=== PATIENT | male | born 1960 | race Caucasian/White ===

== ENCOUNTER 2017-12-19 23:07 | Inpatient (IN) | payer SELFPAY ==
[2017-12-19 23:08] VITALS: BP 157/95; PULSE 97; RESP 16; TEMP 36.8; O2SAT 89; BMI 41.8
[2017-12-19 23:20] VITALS: PULSE 99; RESP 17; O2SAT 93
--- NOTE | 2017-12-19 23:42 | ED.DCSUM_ITS ---
- ER Visit Summary Date of Service: 12/19/17 Chief Complaint: Left lower extremity chronic wound with fever and chills History of Present Illness: The patient is a 57 M bilateral lower extremity chronic lymphedema. 1-2 years ago he developed a wound in his left lower leg which he became septic from from cellulitis and local infection. Was treated in the hospital that time with IV antibiotics and got better. He was also under the care of the wound care center at that time. He never needed any surgery done. States since September of this year he has had a wound develop his left lower extremity again. He takes care of his lower extremities at home with Alexander wraps. Currently he is uninsured so he does not see a doctor very frequently. And was hesitant to seek medical care until tonight. States the last several days he has had fever and chills. And just felt poorly. And he is concerned his left lower extremity became infected again. Physical Examination: Middle-aged male no acute distress. Vital signs are stable afebrile. H EENT exam unremarkable. Neck nontender no lymphadenopathy. Lungs clear to auscultation bilaterally. Heart regular rate and rhythm no murmur. Abdomen soft nontender. Normal bowel sounds no peritoneal signs. He is moving all 4 extremities. The neurovascular intact. He has chronic lymphedema both lower extremities. His left lower extremity on the anterior lower waters just proximal to the ankle is a large wound. There is no pus. It is warm to touch. There is surrounding cellulitis. There is no lymphangitic streaking. No involvement of the ankle or knee joints. There is no inguinal lymphadenopathy on the left leg. Dorsi plantar flexion is intact. His normal touch sensation. He does have a DP pulse. Neurologically is awake and alert with no focal motor deficits. Test Results: White count is 7. H&H 14 and 41 no bands. Electrolytes unremarkable creatinine 1.31. Chest x-ray showed chronic changes no acute process. Emergency Department Course and Treatment: Patient with chronic bilateral lower extremity lymphedema with a chronic wound of his left lower leg since September. He is seen to have developed a cellulitis on left lower leg wound. Treatment Plan: Admission for IV antibiotics and set up for wound care. P exam at 01 100 patient is doing well. He and his and I discussed his test results and the plan for admission and further evaluation and workup. I will speak to Dr. Nalini the hospitalist on this evening. Disposition: Admission Impression: Chronic left lower extremity leg wound with acute cellulitis Chronic bilateral lower extremity lymphedema This note was generated with [employer] dictation software. It may contain incorrect words, spelling, and punctuation that were not noted in review of the chart prior to signing ED Disposition - Plan for ED Patient: Chief Complaint: Cellulitis Referrals: Roger Mendez MD [Primary Care Provider] -
--- NOTE | 2017-12-20 00:20 | RAD_ITS ---
STUDY: X-RAY CHEST REASON FOR EXAM: Male, 57 years old. Hypoxia TECHNIQUE: 2 views COMPARISON: None. FINDINGS: Notch is normal. There are platelike atelectatic changes in the left base. Right lung is clear. No pleural effusions. Normal visualized thoracic spine. Normal visualized ribs, clavicles, and shoulders. There is no demonstrated abnormality of the visualized soft tissue structures of the upper abdomen. RAD/Chest PA and Lateral IMPRESSION: Platelike atelectatic changes in the left base. No acute pneumonia. No failure. Electronically Signed: Jaxon Alarcon, at 1:26 EDT Tel , Service support ,
[2017-12-20 00:22] LABS: Anion Gap 8 (5-15); BUN 17 mg/dL (7-18); Calcium,Total 8.9 mg/dL (8.5-10.1); Chloride 105 mmol/L (98-107); Creatinine, Serum 1.31 mg/dL (0.70-1.30); EST Glomerular Filtration Rate 60 mL/min (>60); Est Glom Filt Rate - Afr Amer 72 mL/min (>60); Estimated Creatinine Clearance 80.43 ml/min; Glucose 117 mg/dL (74-106); Potassium 4.4 mmol/L (3.5-5.1); Sodium Level 135 mmol/L (136-145)
[2017-12-20 00:28] LABS: Absolute Lymphocyte Count 1.69 X10^3/ul (0.83-4.51); Absolute Neutrophil Count 5.2 X10^3/uL (2.0-7.7); Basophil# 0.06 X10^3/uL; Basophil% 0.8 % (0-1); Eosinophil# 0.18 X10^3/uL; Eosinophils% 2.3 % (0-5); Hematocrit 41.6 % (40-54); Hemoglobin 14.9 g/dl (13.0-16.5); Lymphocyte # 1.69 X10^3/ul (4.0); Lymphocyte % 21.7 % (19-41); Mean Corp Hgb Conc 35.8 g/gl (32-36); Mean Corpuscular Hgb 37.1 pg (27.0-32.0); Mean Corpuscular Volume 103.5 fL (80-94); Mean Platelet Vol. 9.2 fl (6.2-12.0); Monocyte# 0.69 X10^3/uL; Monocyte% 8.9 % (0-10); Neutrophil # 5.15 X10^3/uL (2.7-7.7); POSITIVE COUNT NO; POSITIVE DIFFERENTIAL NO; POSITIVE MORPHOLOGY NO; Platelet Count 315 K/mm3 (150-450); RBC Distribution Width CV 11.6 % (11.6-14.6); RBC Distribution Width SD 43.9 fl (35.1-43.9); Red Blood Count 4.02 M/mm3 (4.6-6.2); White Blood Count 7.8 K/mm3 (4.4-11.0)
--- NOTE | 2017-12-20 01:29 | PCM.HP.STD ---
Problem List (1) Cellulitis Status: Acute (2) Cellulitis of left leg Status: Acute (3) Wound, open, lower limb with complication Status: Acute (4) Lymphedema Status: Chronic (5) Obesity Status: Chronic Qualifiers: Obesity type: due to excess calories (6) Venous (peripheral) insufficiency Status: Chronic History of Present Illness Date of Admission: 12/20/17 Chief Complaint: Cellulitis The patient is a 57 year old male w/ h/o lymphedema, PVD, and chronic left leg wound admitted for cellulitis. Pt has been struggling with the left leg wound x 1-2 years and was admitted a year or two ago for severe sepsis secondary to cellulitis. He was given IV antibiotic and has been set up with his wound care. Since September, he noted the wound gotten worse. He has been working and has been standing all day which did not help with wound healing per pt. He noted drainage and worsening pain and redness. No matter what he does, he could not improve the drainage. Nothing made it worse. He did not see medical attention because he is uninsured. He developed fever and chill in the last 2-3 days. No other associated symptoms. Past Medical History Past Medical History (Chronic Problems): Chronic Problems Venous (peripheral) insufficiency (Chronic) Obesity (Chronic) Hypertension (Chronic) Lymphedema (Chronic) Allergies No Known Allergies Allergy (Verified 12/19/17 23:12) Home Medications: Ambulatory Orders Medication Instructions Recorded NK [NK] 12/19/17 Surgical History: no surgical history Psychiatric History: No pertinent psych hx Lives: Spouse/ Significant Other Smoking Status: Never smoker Alcohol: None Drugs: None - *Family History Maternal History Items: No pertinent history Paternal History Items: Heart Disease, Hypertension Review of Systems Constitutional: Reports: Chills, Fever. Denies: Weight Change HEENT: Denies: Head Aches, Sinus Congestion, Sinus Drainage Cardiovascular: Denies: Chest Pain, Palpitations Respiratory: Denies: Cough, Shortness of breath at rest, Sputum production Gastrointestinal: Denies: Abdominal Pain, Nausea, Vomiting Genitourinary: Denies: Dysuria Musculoskeletal: Denies: Joint Pain, Joint Tenderness Skin: Reports: Wounds. Denies: Rash Neurological: Denies: Numbness, Tingling, Focal weakness Psychiatric: Denies: Anxiety, Depression, Homicidal Ideations, Suicidal Ideations Hematologic/ Lymphatic: Denies: Easy Bruising, Easy Bleeding VTE Information - Inpt Only VTE Present on Admission: No VTE Mechan Device Prophylaxis: None VTE Pharm Prophylaxis ordered?: Yes Patient Problems: Active and Suspected Problems Cellulitis (Acute) - Physical Exam General: Alert, Oriented x3, Cooperative HEENT: Atraumatic, PERRLA, EOMI, Normocephalic Neck: Supple, No JVD, Negative Carotid Bruits Lungs: Clear to auscultation, Normal air movement Cardiovascular: Regular rate, No murmurs Abdomen: Bowel Sounds Present, Soft, Non Tender Extremities: Capillary Refill Less than 3 Seconds, - - Bilateral lymphedema. Left leg cellulitis Skin: No rashes, No breakdown Musculoskeletal: No Tenderness to Palpation of Joints or Extremities Neurological: Cranial nerves II-XII grossly intact Psych/Mental Status: Normal Affect, Appropriate Vital Signs Temp Pulse Resp BP Pulse Ox 98.2 F 99 17 157/95 H 93 12/19/17 23:08 12/19/17 23:20 12/19/17 23:20 12/19/17 23:08 12/19/17 23:20 Oxygen Flow Rate (L/min) 2 Oxygen Delivery Method Nasal Cannula Weight: 164 kg Body Mass Index (BMI) 41.8 Laboratory Tests Past 24 Hrs 12/19/17 12/19/17 23:00 23:55 WBC 7.8 RBC 4.02 L Hgb 14.9 Hct 41.6 MCV 103.5 H MCH 37.1 H MCHC 35.8 RDW 11.6 RDW Differential 43.9 Plt Count 315 MPV 9.2 Immature Gran % (Auto) 0.300 Neut % (Auto) 66.0 Lymph % (Auto) 21.7 Pettis % (Auto) 8.9 Eos % (Auto) 2.3 Baso % (Auto) 0.8 Absolute Neuts (auto) 5.2 Absolute Lymphs (auto) 1.69 Total Counted Not Reportable Sodium 135 L Potassium 4.4 Chloride 105 Carbon Dioxide 22.0 Anion Gap 8 BUN 17 Creatinine 1.31 H Estim Creat Clear Calc 80.43 Est GFR (MDRD) Af Amer 72 Est GFR (MDRD) Non-Af 60 BUN/Creatinine Ratio 13.0 Glucose 117 H Calcium 8.9 Assessment/Plan All Active Problems Cellulitis (Acute) Wound, open, lower limb with complication (Acute) Cellulitis of left leg (Acute) 57 year old male w/ h/o lymphedema, PVD, and chronic left leg wound admitted for cellulitis. 1) Cellulitis: Will start zosyn and vancomycin. Lymphedema noted. Will get cultures. 2) PVD: Supportive care. Monitor. 3) CKD III: Hydration. Routine CKD care. 4) Prophylaxis: Heparin.
[2017-12-20 01:47] VITALS: BP 138/87; PULSE 95; RESP 17; TEMP 36.7; O2SAT 97
[2017-12-20 02:13] VITALS: BMI 41.3; BMI 41.4
[2017-12-20 02:23] VITALS: BP 142/90; PULSE 85; RESP 16; TEMP 37; O2SAT 92
--- NOTE | 2017-12-20 02:27 | VDLE_ITS ---
Reason For Study: BLE SWELLING, CELLULITIS RIGHT LEFT GSV is normal. GSV is normal. CFV is compressible, spontaneous, phasic, CFV is compressible, spontaneous, phasic, competent and demonstrates normal competent, and demonstrates normal augmentation. augmentation. FV is compressible, spontaneous, phasic, FV is compressible, spontaneous, phasic, competent and demonstrates normal competent and demonstrates normal augmentation. augmentation. POP V is compressible, spontaneous, phasic, POP V is compressible, spontaneous, phasic, competent and demonstrates normal competent and demonstrates normal augmentation. augmentation. T/P Trunk is compressible. T/P Trunk is compressible. PTV is compressible. PTV is compressible. Unable to assess Per V. Unable to assess Per V. Procedure Exam performed portable in patient room. The exam was diagnostic. The study was technically difficult. A preliminary report was called and/or faxed to [facility]. Interpretation Summary Deep veins of the lower extremities are bilaterally patent and compressible segmentally. There is no evidence of deep vein thrombosis on either side. Valvular competence appears intact within the proximal deep venous systems bilaterally. The greater saphenous veins appear bilaterally patent and compressible segmentally. The peroneal veins were not visualized on either side. Ordering Physician: Janes Gayle Referring Physician: Roger Mendez Performed By: Francine Hernandez, RDCS, RVT
[2017-12-20 03:13] LABS: Erythrocyte Sedimentation Rate 65 mm/hr (0-20)
[2017-12-20] MEDS: 0.9% Normal Saline 1,000 ML 100 ML IV ×2 (03:29→22:57)
--- NOTE | 2017-12-20 04:44 | PCM.RX.CS ---
Consult Pharmacy has been consulted to manage selected antiobiotic: Vancomycin Type of Consult: New start Suspected Infection: Skin/Soft tissue Prior Doses of Antibiotics Received/Current Regimen: Medications Vancomycin HCl 1,250 mg/ (Sodium Chloride) 275 mls @ 183.333 mls/hr IV Q12H RYANNE Vancomycin HCl 2,000 mg/ (Sodium Chloride) 540 mls @ 260 mls/hr IV X1 ONE Stop: 12/20/17 05:04 Last Admin: 12/20/17 03:29 Dose: 260 mls/hr Labs: Sodium 135 mmol/L (136-145) L 12/19/17 23:00 Potassium 4.4 mmol/L (3.5-5.1) 12/19/17 23:00 Chloride 105 mmol/L (98-107) 12/19/17 23:00 Carbon Dioxide 22.0 mmol/L (21.0-32.0) 12/19/17 23:00 Anion Gap 8 (5-15) 12/19/17 23:00 BUN 17 mg/dL (7-18) 12/19/17 23:00 Creatinine 1.31 mg/dL (0.70-1.30) H 12/19/17 23:00 Est GFR (MDRD) Af Amer 72 mL/min (>60) 12/19/17 23:00 Est GFR (MDRD) Non-Af 60 mL/min (>60) 12/19/17 23:00 BUN/Creatinine Ratio 13.0 RATIO (10-20) 12/19/17 23:00 Glucose 117 mg/dL (74-106) H 12/19/17 23:00 Weight used for dosin.4 kg Estimated Creatinine Clearance: 80 Goal Trough: 10-15 mcg/mL Pharmacy Plan for Drug Dosing: Pharmacy Service will continue to monitor and adjust dosing as required. Follow-Up Labs: Trough Vancomycin Labs to be done on [date and time ordered]: 12/21/17 @1430
[2017-12-20 05:31] LABS: Hemoglobin A1c 5.7 % (4.2-6.3)
[2017-12-20] MEDS: Piperacil/Tazobactam 3.375 GM/50 ML ML IV ×3 (06:59→22:58)
[2017-12-20] MEDS: Heparin Injection (Vial) 5,000 UNIT/ML VIAL 5000 UNIT SC ×3 (07:03→22:57)
[2017-12-20 07:11] LABS: Bedside Glucose 113 mg/dL (70-110)
[2017-12-20 08:26] VITALS: BP 152/85; PULSE 72; RESP 17; TEMP 36.4; O2SAT 95
--- NOTE | 2017-12-20 10:33 | CASEMGMT ---
See assessment. SW spoke w/pt in room, as pt is self pay. Pt is not certain if he will qualify for Medicaid but is willing to fill out an application. Pt works in [employer] at [employer], is fully independent and no homegoing needs are anticipated. SW did give pt information for [employer], 211, [facility] assist, and other prescription assist programs. Pt pays privately to see PCP when needed. No needs are anticipated at discharge unless pt needs assist w/meds. SANDIP did also let Mariel in our financial dept know that pt is willing to fill out Medicaid application, Mariel had been up earlier but pt was sleeping. She will come back to see pt and complete the erica w/pt. ADAN Calhoun, CRM FUNCTIONAL ANALYST
[2017-12-20] MEDS: Glucerna Shake 120 ML LIQUID PO ×2 (11:20→13:54)
[2017-12-20] MEDS: oxyCODONE 5 MG Tablet PO (11:22)
[2017-12-20 11:30] LABS: Bedside Glucose 132 mg/dL (70-110)
--- NOTE | 2017-12-20 12:42 | PCA ---
Obtained blood sugar for nurse. pt tolerated well.
[2017-12-20 14:30] VITALS: BP 146/93; PULSE 84; RESP 18; TEMP 36.8; O2SAT 92
--- NOTE | 2017-12-20 20:17 | PCM.PROGNOTE ---
Patient Problems: Active and Suspected Problems Cellulitis (Acute) Subjective: Patient is a 57-year-old male admitted to [facility] on 12/20/2017 with a diagnosis of cellulitis of the left lower extremity and nonhealing wound of the left lower extremity. He does have a history of venous insufficiency and venous stasis ulcers in the past. He has in the past also followed up with the wound care clinic. 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 He has been unable to follow-up at the wound care clinic. He has his legs dependent every day driving a mower and they have been swelling severely. There has been a lot of drainage from the wound on the left leg. He has been afebrile since admission. White blood cell count is normal at 7.8 with an unremarkable differential. Hemoglobin is 14.9 and the MCV is elevated at 103.5. Sodium is 135 and the creatinine is 1.31. The ESR is elevated at 65. Hemoglobin A1c is 5.7. - Physical Exam General: Alert, Oriented x3, Cooperative, No apparent distress HEENT: Atraumatic, PERRLA, EOMI, Normocephalic Lungs: Clear to auscultation, Normal air movement Cardiovascular: Regular rate, Regular Rhythm, Normal S1, Normal S2, No murmurs, No Gallop Abdomen: Bowel Sounds Present, Soft, Non Tender, Non-Distended, Obese Extremities: No clubbing, No cyanosis, Edema, Peripheral Pulses Normal Skin: - - there is a venous stasis ulcer present over the distal LLE. the base is 95% granulating. The margins are pearly pink in appearance and some of the edges are rolled under. there is mild janna-wound erythema. There is serous drainage soaking the wound. there is no odor to the DC. He has a hard area in the posterior left calf which is not tender to palpation. Neurological: Cranial nerves II-XII grossly intact, Neuro grossly intact Psych/Mental Status: Normal Affect, Appropriate Vital Signs Temp Pulse Resp BP Pulse Ox 98.3 F 84 18 146/93 H 92 12/20/17 14:30 12/20/17 14:30 12/20/17 14:30 12/20/17 14:30 12/20/17 14:30 Oxygen Flow Rate (L/min) 2 Oxygen Delivery Method Room Air Weight: 357 lb 15.997 oz Body Mass Index (BMI) 41.3 Intake and Output for Last 24 Hours 12/18/17 12/19/17 12/20/17 23:59 23:59 23:59 Intake Total 2036 Balance 2036 POC Glucose 12/20/17 12/20/17 11:20 06:57 POC Glucose 132 H 113 H Medical Necessity - Tobacco Use Smoking Status: Never smoker Assessment/Plan All Active Problems Cellulitis (Acute) Wound, open, lower limb with complication (Acute) Cellulitis of left leg (Acute) Impressions 1. cellulitis of the Left LE with a non-healing venous stasis ulcer. 2. morbid obesity 3. Superficial varicosities of both lower extremities 4. elevated BP in a pt with no hx of HTN PCR on the drainage from the left lower extremity to rule out MRSA or staph aureus Wound culture Continue Zosyn and vancomycin for now until we get the PCR back. Heparin 5000 units subcu every 8 hours for DVT prophylaxis Recheck lab in the a.m.
[2017-12-20 22:24] VITALS: BP 143/90; PULSE 77; RESP 20; TEMP 36.6; O2SAT 94
[2017-12-21 00:53] LABS: M R Staph aureus DNA By PCR Negative (Negative); Probe Check PASS; Specimen Processing Control PASS; Staph aureus DNA By PCR NEGATIVE (Negative)
[2017-12-21] MEDS: 0.9% NaCl Peripheral Flush Adult/Peds IV (03:04)
[2017-12-21 03:13] VITALS: BP 131/87; PULSE 75; RESP 20; TEMP 36.4; O2SAT 92
[2017-12-21] MEDS: Heparin Injection (Vial) 5,000 UNIT/ML VIAL 5000 UNIT SC ×3 (06:28→21:50)
[2017-12-21] MEDS: Piperacil/Tazobactam 3.375 GM/50 ML ML IV ×3 (06:28→21:51)
--- NOTE | 2017-12-21 06:36 | NURSING ---
Discussed with patient order for dressing changes to bilateral leg to be changed every 8 hours. Patient refused to have them changed at this time-states he wants to wait for doctor or wound RN to come in and change them.
[2017-12-21 06:56] VITALS: O2SAT 94
--- NOTE | 2017-12-21 09:39 | CASEMGMT ---
Social Work Note SW placed a call to Mariel in patient financial services. Mariel confirms that pt completed Medicaid Application and Mariel faxed the application to [facility]. Mariel states that pt will need to follow up with [employer] to submit proof of income. Tri Holliday CERTIFIED REGISTERED DENTAL ASSISTANT, SAS ANALYST
[2017-12-21 09:50] VITALS: BP 139/74; PULSE 72; RESP 18; TEMP 36.8; O2SAT 98
[2017-12-21] MEDS: oxyCODONE 5 MG Tablet PO ×2 (11:45→21:51)
[2017-12-21] MEDS: 0.9% Normal Saline 1,000 ML 100 ML IV ×2 (12:42→19:50)
[2017-12-21 15:27] LABS: Vancomycin, Trough Level 11.3 ug/mL (5.0-15.0)
[2017-12-21 15:30] VITALS: BP 142/82; PULSE 72; RESP 18; TEMP 37; O2SAT 98
--- NOTE | 2017-12-21 15:44 | NURSING ---
wound photo: right lateral lower leg
--- NOTE | 2017-12-21 15:45 | NURSING ---
wound photo: left anterior lower leg
--- NOTE | 2017-12-21 15:59 | PCM.RX.CS ---
Consult Pharmacy has been consulted to manage selected antiobiotic: Vancomycin Type of Consult: Follow-up Suspected Infection: Skin/Soft tissue Prior Doses of Antibiotics Received/Current Regimen: Vancomycin 1250mg IV q12h x3 doses Labs: Sodium 135 mmol/L (136-145) L 12/19/17 23:00 Potassium 4.4 mmol/L (3.5-5.1) 12/19/17 23:00 Chloride 105 mmol/L (98-107) 12/19/17 23:00 Carbon Dioxide 22.0 mmol/L (21.0-32.0) 12/19/17 23:00 Anion Gap 8 (5-15) 12/19/17 23:00 BUN 17 mg/dL (7-18) 12/19/17 23:00 Creatinine 1.31 mg/dL (0.70-1.30) H 12/19/17 23:00 Est GFR (MDRD) Af Amer 72 mL/min (>60) 12/19/17 23:00 Est GFR (MDRD) Non-Af 60 mL/min (>60) 12/19/17 23:00 BUN/Creatinine Ratio 13.0 RATIO (10-20) 12/19/17 23:00 Glucose 117 mg/dL (74-106) H 12/19/17 23:00 Vancomycin Trough 11.3 ug/mL (5.0-15.0) 12/21/17 14:45 Microbiology: Microbiology 12/20/17 22:40 Skin - Leg Gram Stain - Final Weight used for dosin kg Estimated Creatinine Clearance: 80ml/min Goal Trough: 10-15 mcg/mL Pharmacy Plan for Drug Dosing: Trough came back at 11.3. Recommend keeping same dose of 1250mg IV q12h and rechecking trough after 3 more doses. Pharmacy Service will continue to monitor and adjust dosing as required. Follow-Up Labs: Trough Vancomycin - trough Labs to be done on [date and time ordered]: 12/23/17 at 1430
[2017-12-21 19:31] VITALS: BP 133/83; PULSE 69; RESP 18; TEMP 36.6; O2SAT 94
--- NOTE | 2017-12-21 19:56 | PCM.PROGNOTE ---
Subjective: Afebrile since admission. Vital signs are stable. He has no complaints today and has been compliant with elevation.Denies any diarrhea or mouth pain - Physical Exam General: Alert, Oriented x3, Cooperative Oral: No Gingival or Mucosal Lesions/ Ulcerations Lungs: Clear to auscultation Cardiovascular: Regular rate, Regular Rhythm, Normal S1, Normal S2, No Gallop Abdomen: Bowel Sounds Present, Soft, Non Tender, Non-Distended Extremities: Edema - Continues to have edema of the lower extremities but much improved since admission, - - 100% granulation tissue in the wound base, yellow serous drainage, no odor, sweeling has improved. Skin: - - The base of the wound is now 100% granulating with islands of epithelialization evident. No periwound erythema, no odor, no purulent discharge. Continues to have serous drainage. Vital Signs Temp Pulse Resp BP Pulse Ox 97.9 F 69 18 133/83 H 94 12/21/17 19:31 12/21/17 19:31 12/21/17 19:31 12/21/17 19:31 12/21/17 19:31 Oxygen Flow Rate (L/min) 2 Oxygen Delivery Method Room Air Weight: 357 lb 15.997 oz Body Mass Index (BMI) 41.3 Intake and Output for Last 24 Hours 12/19/17 12/20/17 12/21/17 23:59 23:59 23:59 Intake Total 2036 3724.5 / 3724.5 Balance 2036 3724.5 / 3724.5 Microbiology Past 72 Hours 12/20/17 22:40 Gram Stain - Final Skin - Leg Laboratory Tests Past 24 Hrs 12/20/17 12/21/17 22:40 14:45 Vancomycin Trough 11.3 S.aureus Protein A PCR NEGATIVE MRSA (PCR) Negative Medical Necessity - Tobacco Use Smoking Status: Never smoker Assessment/Plan All Active Problems Cellulitis (Acute) Wound, open, lower limb with complication (Acute) Cellulitis of left leg (Acute) Impressions 1. cellulitis of the Left LE with a non-healing venous stasis ulcer. 2. morbid obesity 3. Superficial varicosities of both lower extremities 4. elevated BP in a pt with no hx of HTN Continue current care We will discuss with discharge planning whether this patient will be able to follow-up in the wound care center since he has now completed the Medicaid application Stressed the importance of elevation and compression to avoid venous stasis ulcerations in the future. Code Visit Inpatient E&M: 20272 Subs Hosp L1
[2017-12-22 01:31] VITALS: BP 137/84; PULSE 66; RESP 20; TEMP 37.1; O2SAT 95
[2017-12-22] MEDS: 0.9% Normal Saline 1,000 ML 100 ML IV (06:04)
[2017-12-22] MEDS: Piperacil/Tazobactam 3.375 GM/50 ML ML IV (06:04)
[2017-12-22 09:14] VITALS: BP 138/94; PULSE 64; RESP 16; TEMP 36.7; O2SAT 95
[2017-12-22] MEDS: Acetaminophen 325 MG Tablet 650 MG PO (09:20)
[2017-12-22] MEDS: oxyCODONE 5 MG Tablet PO (09:21)
--- NOTE | 2017-12-22 10:58 | CASEMGMT ---
Social Work Note Dr. Hernandez states that pt will need wound care center appointment for next week. SW updated psychiatric secretary Anabelle of this. Anabelle states understanding and will set up appointment. Plan: Pt is expected to discharge home today Tri Holliday MSW, CLAIMS ADJUDICATOR
--- NOTE | 2017-12-22 13:24 | PCM.DC ---
- Discharge Diagnoses Current Active Problems: Current Active and Chronic Problems Cellulitis (Acute) You will use the following diet at home:: No restrictions Your food should be the consistency of: Regular Your liquids should be the consistency of: Regular/Thin Discharge Activity: May not drive while taking narcotic pain medications. Weight Bearing Status: Weight bearing as tolerated Keep extremity elevated above heart level: Legs Call your doctor if your incision/area has: Sudden Increased Bleeding, Increased Pain/ Swelling, Increased Redness, Foul Smelling Discharge Call your doctor if you observe: Fever of 101 or Higher Cleanse incision/area with: Normal Saline Instructions: Chronic Venous Insufficiency: Treating Ulcers, Understanding Chronic Venous Insufficiency Additional Instructions: 1. Your BP is mildly increased in the hospital. There are many BP meds that are only $10 for 3 months available at [facility]. Ask Dr. Mendez if he thinks you need to be on an antihypertensive. 2. Losing weight will help with the swelling in your legs and also help bring down the BP. Keep trying......it is not an easy task. The paleo diet is mostly vegetables and lean meats and this may be a good option for you. 3. you are going to be able to be followed in the wound care center since the medicaid application was made so I want them to see you next week. 4. IT IS VERY IMPORTANT to keep your legs elevated and to use the compression wraps to control the swellling in your legs....that wound will NOT heal if the swelling is not controlled. 5. You are going to be less active than usual and with the leg elevation and no work this puts you at risk for blood clots. We are giving you a prescription for Xarelto at a low dose to prevent blood clots and you do not need to take it longer than 1 month. You are going to be able to work in the future IF you get some good compressions socks and are compliant with wearing them everyday from the time you swing your legs out of bed in the morning until you lie down at night......you will need 30-40 cm of pressure to be effective and Dr. Mendez or the wound care center can give you a prescription when the ulcer is healed. For now continue the [place] wraps. If you are unable to get the Xarelto then take 1 325mg Aspirin twice a day for the next month. Allergies/Adverse Reactions: Allergies No Known Allergies Allergy (Verified 12/19/17 23:12) Medications to take at Discharge Cefadroxil [Duricef] 500 mg PO BID #9 cap 12/22/17 Oxycodone HCl/Acetaminophen [Percocet 5/325] 1 - 2 tab PO Q4H PRN PRN 7 Days #30 tab 12/22/17 The following prescriptions were given: Oxycodone HCl/Acetaminophen [Percocet 5/325] 1 - 2 tab PO Q4H PRN PRN 7 Days #30 tab PRN Reason: Pain Cefadroxil [Duricef] 500 mg PO BID #9 cap Primary Care Physician: Roger Mendez MD [Primary Care Provider] - Please follow up with your Primary Care Physician in: 1-2 weeks Please Follow Up With: Wound Center When: early next week Proposed Discharge Date: 12/22/17
--- NOTE | 2017-12-22 13:35 | DCINST_ITS ---
- Discharge Diagnoses Current Active Problems: Current Active and Chronic Problems Cellulitis (Acute) You will use the following diet at home:: No restrictions Your food should be the consistency of: Regular Your liquids should be the consistency of: Regular/Thin Discharge Activity: May not drive while taking narcotic pain medications. Weight Bearing Status: Weight bearing as tolerated Keep extremity elevated above heart level: Legs Call your doctor if your incision/area has: Sudden Increased Bleeding, Increased Pain/ Swelling, Increased Redness, Foul Smelling Discharge Call your doctor if you observe: Fever of 101 or Higher Cleanse incision/area with: Normal Saline Instructions: Chronic Venous Insufficiency: Treating Ulcers, Understanding Chronic Venous Insufficiency Additional Instructions: 1. Your BP is mildly increased in the hospital. There are many BP meds that are only $10 for 3 months available at [facility]. Ask Dr. Mendez if he thinks you need to be on an antihypertensive. 2. Losing weight will help with the swelling in your legs and also help bring down the BP. Keep trying......it is not an easy task. The paleo diet is mostly vegetables and lean meats and this may be a good option for you. 3. you are going to be able to be followed in the wound care center since the medicaid application was made so I want them to see you next week. 4. IT IS VERY IMPORTANT to keep your legs elevated and to use the compression wraps to control the swellling in your legs....that wound will NOT heal if the swelling is not controlled. 5. You are going to be less active than usual and with the leg elevation and no work this puts you at risk for blood clots. We are giving you a prescription for Xarelto at a low dose to prevent blood clots and you do not need to take it longer than 1 month. You are going to be able to work in the future IF you get some good compressions socks and are compliant with wearing them everyday from the time you swing your legs out of bed in the morning until you lie down at night......you will need 30-40 cm of pressure to be effective and Dr. Mendez or the wound care center can give you a prescription when the ulcer is healed. For now continue the Surpres wraps. If you are unable to get the Xarelto then take 1 325mg Aspirin twice a day for the next month. Allergies/Adverse Reactions: Allergies No Known Allergies Allergy (Verified 12/19/17 23:12) Medications to take at Discharge Cefadroxil [Duricef] 500 mg PO BID #9 cap 12/22/17 Oxycodone HCl/Acetaminophen [Percocet 5/325] 1 - 2 tab PO Q4H PRN PRN 7 Days # 30 tab 12/22/17 The following prescriptions were given: Oxycodone HCl/Acetaminophen [Percocet 5/325] 1 - 2 tab PO Q4H PRN PRN 7 Days # 30 tab PRN Reason: Pain Cefadroxil [Duricef] 500 mg PO BID #9 cap Primary Care Physician: Roger Mendez MD [Primary Care Provider] - Please follow up with your Primary Care Physician in: 1-2 weeks Please Follow Up With: Wound Center When: early next week Proposed Discharge Date: 12/22/17
--- NOTE | 2017-12-22 13:35 | CASEMGMT ---
Social Work Note Dr. Hernandez is discharging pt on Xarelto and Eliquis. SW provided pt with Xarelto and Eliquis free 30 day trial offer pamphlets. Pt thanked this SW. Pt denied additional needs or concerns at this time. 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
--- NOTE | 2017-12-22 13:45 | DS.PCM_ITS ---
Discharge Date and Diagnosis Date of Admission: 12/20/17 Date of Discharge: 12/22/17 - Primary Discharge Diagnosis Active and Suspected Problems Cellulitis (Acute)- left lower extremity non-healing venous stasis ulcer of the LLE - Secondary Discharge Diagnosis Chronic Problems Venous (peripheral) insufficiency (Chronic) MorbidObesity (Chronic) Hypertension (Chronic) - not on any meds currently Hospital Course and Treatment Imaging Results: Clinical Impression(s) from Imaging Studies Chest X-Ray 12/20/17 00:20 IMPRESSION: Platelike atelectatic changes in the left base. No acute pneumonia. No failure. Electronically Signed: Jaxon Alarcon, at 1:26 EDT Tel , Service support , Microbiology 12/19/17 23:55 Blood Culture (Wb) - Right Hand Blood Culture - Final No growth in 5 days. 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 He had been unable to follow-up at the wound care clinic. His legs are dependent every day while driving a mower and they have been swelling severely. There had been a lot of drainage from the wound on the left leg. White blood cell count at admission was 7.8 with 66% neutrophils. BMP was unremarkable. The sed rate was elevated at 65. Blood pressures were elevated initially but came down prior to discharge. He was started on vancomycin and Zosyn by the admitting physician and PCR of the wound drainage was ordered as well as a wound culture. PCR was negative for staph aureus and MRSA and vancomycin was discontinued. He remained on Zosyn. He was seen in consultation by the enterostomy/wound nurse daily. The wound culture was positive for Serratia marcescens sensitive to Zosyn. The swelling decreased significantly with elevation and compression. On 2017 the wound was 100% granulating with no odor, no periwound erythema and no purulent discharge. There were islands of new epithelialization present in the wound. SurePress wraps were applied and the patient's was instructed in proper application. He was discharged home on 12/22/2017 with a prescription for cefadroxil 500 mg twice daily. I did not find significant evidence for cellulitis present and feel he primarily has venous stasis/venous insufficiency which has been non-healing due to severe swelling. He was given a prescription for Xarelto 10 mg, #30, and will take this as long as he is primarily sedentary and elevating his leg to promote wound healing. He was given a prescription for Percocet 5/325 mg, #30, and instructed to take 1-2 p.o. every 4 hours as needed pain. He will follow-up in the wound care center in 5-7 days and will follow up with Dr. Roger Mendez in 1-2 weeks. General: Alert, Oriented x3, Cooperative Oral: No Gingival or Mucosal Lesions/ Ulcerations Lungs: Clear to auscultation Cardiovascular: Regular rate, Regular Rhythm, Normal S1, Normal S2, No Gallop Abdomen: Bowel Sounds Present, Soft, Non Tender, Non-Distended Extremities: Edema - Continues to have edema of the lower extremities but much improved since admission, - - 100% granulation tissue in the wound base, yellow serous drainage, no odor, sweeling has improved. Skin: - - The base of the wound is now 100% granulating with islands of epithelialization evident. No periwound erythema, no odor, no purulent discharge. Continues to have serous drainage. Discharge Activity: May not drive while taking narcotic pain medications. Weight Bearing Status: Weight bearing as tolerated Keep extremity elevated above heart level: Legs Call your doctor if your incision/area has: Sudden Increased Bleeding, Increased Pain/ Swelling, Increased Redness, Foul Smelling Discharge Call your doctor if you observe: Fever of 101 or Higher Cleanse incision/area with: Normal Saline Home Medications: Medications to take at Discharge Cefadroxil [Duricef] 500 mg PO BID #9 cap 12/22/17 Oxycodone HCl/Acetaminophen [Percocet 5/325] 1 - 2 tab PO Q4H PRN PRN 7 Days # 30 tab 12/22/17 Rivaroxaban [Xarelto] 10 mg PO DAILY #30 tab 12/22/17 Following Prescrptions Were Given to Patient: Oxycodone HCl/Acetaminophen [Percocet 5/325] 1 - 2 tab PO Q4H PRN PRN 7 Days # 30 tab PRN Reason: Pain Rivaroxaban [Xarelto] 10 mg PO DAILY #30 tab Cefadroxil [Duricef] 500 mg PO BID #9 cap Primary Care Physician: Roger Mendez MD [Primary Care Provider] - Please follow up with your Primary Care Physician in: 1-2 weeks Please Follow Up With: Wound Center When: early next week Patient Instructions: Understanding Chronic Venous Insufficiency, Chronic Venous Insufficiency: Treating Ulcers Disposition: Home Minutes spent on discharge:: 30 Patient Condition:: Good Medical Necessity - Tobacco Use Smoking Status: Never smoker Meaningful Use Info Meaningful Use Diagnoses (Choose all that apply): None applicable Code Visit Inpatient E&M: 46896 Disch Hosp
[2017-12-22 14:44] VITALS: BP 134/87; PULSE 75; RESP 18; TEMP 36.4; O2SAT 97
== END 2017-12-22 15:55 | disposition home or self-care (01) | DRG 603 ==
LOC: ED 12-20 00:01 → MS3 12-20 01:35
PROVIDERS: Admitting Provider Internal Medicine; Emergency Provider Emergency Medicine; Family Provider Family Medicine; PCP Family Medicine; Visit Provider Internal Medicine
DX: L03.116 Cellulitis of left lower limb (principal); Z68.41 Body mass index [BMI] 40.0-44.9, adult; L97.829 Non-pressure chronic ulcer of other part of left lower leg with unspecified severity; I87.2 Venous insufficiency (chronic) (peripheral); I89.0 Lymphedema, not elsewhere classified; I73.9 Peripheral vascular disease, unspecified; E66.01 Morbid (severe) obesity due to excess calories; I83.93 Asymptomatic varicose veins of bilateral lower extremities; I10 Essential (primary) hypertension
CPT/HCPCS: 71046; 80048; 80202; 82962; 83036; 85025; 85652; 87040; 87070; 87077; 87186; 87205; 87640; 93970; 97802; 99285; J7030; J7040; J7050; A4216